=== PATIENT | male | born 1995 | race Two or more races ===

== ENCOUNTER 2018-05-19 07:47 | Emergency (ER) | payer OTHER ==
[~2018-05-19] VITALS: Ht 180.3 cm; Wt 70.3 kg
[2018-05-19 08:10] VITALS: BP 122/78
--- NOTE | 2018-05-19 09:07 | Emergency Room Report ---
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 He states that he was drawing blood from an inpatient, Justina Olson. He states that he had a needlestick to his R. index finger. He states that it didn't bleed. He did immediately wash the area with soap and water. Allergies: Coded Allergies: No Known Allergies (Unverified , 05/19/18) Patient History Past Medical History: none Social History: Denies: smoking, alcohol use, drug use Reviewed Nursing Documentation: PMH: Agreed; PSxH: Agreed Nursing Documentation-PMH Past Medical History: No Stated History Review of Systems All Other Systems: negative except mentioned in HPI Physical Exam Vital Signs Date Time Temp Pulse Resp B/P (MAP) Pulse Ox O2 Delivery O2 Flow Rate FiO2 05/19/18 07:49 98.0 56 18 122/78 98 Room Air 98.1 Sp02 EP Interpretation: reviewed, normal General Appearance: normal inspection, well appearing, no apparent distress, alert, GCS 15, non-toxic Head: normocephalic, atraumatic ENT: hearing grossly normal, normal voice Neck: normal inspection Respiratory: no respiratory distress, no retraction, no accessory muscle use, speaking full sentences Neurologic: alert, oriented x3 Psychiatric: mood/affect normal Skin: other - Tiny puncture wound on R. index finger Medical Decision Making Diagnostic Impression: Primary Impression: Needle stick injury of finger of right hand ER Course The patient has a low risk needle stick injury. There is very little blood from the patient's puncture wound. I reviewed the source patient medical record and there is no history of HIV, hepatitis B or hepatitis C virus. This is a low risk needle stick and does not require PEP treatment. The patient was given the needlestick packet instructed to follow-up with employee health. Pending HIV, HCV, HBV Last Vital Signs Date Time Temp Pulse Resp B/P (MAP) Pulse Ox O2 Delivery O2 Flow Rate FiO2 05/19/18 07:49 98.0 56 18 122/78 98 Room Air 98.1 Disposition: HOME, SELF-CARE Condition: Stable Referrals: NOT CHOSEN IPA/,REFERRING (PCP) Claudia Ortiz DO May 19, 2018 09:07
[2018-05-19 09:10] VITALS: BP 122/78
[2018-05-19 12:30] VITALS: BP 122/78
== END 2018-05-19 09:10 | disposition home or self-care (01) ==
LOC: EEVIPCON 08:19 → EMR 08:19
DX: S61.230A Puncture wound without foreign body of right index finger without damage to nail, initial encounter (principal); W46.0XXA Contact with hypodermic needle, initial encounter; Y92.239 Unspecified place in hospital as the place of occurrence of the external cause; Y99.0 Civilian activity done for income or pay
CPT/HCPCS: 86703; 86706; 86803; 99283